=== PATIENT | female | born 1985 | race Caucasian/White ===

== ENCOUNTER 2024-05-28 20:30 | Emergency (ER) | payer BC ==
[~2024-05-28] VITALS: Ht 170.2 cm; Wt 63.0 kg
[2024-05-28] MEDS ORDERED: CLINDAMYCIN300 M1 PO (20:55)
[2024-05-28] MEDS ORDERED: CLINDAMYCIN HCL 150 MG CAP PO ONE (20:55)
[2024-05-28 21:30] VITALS: BP 141/62
== END 2024-05-28 21:40 | disposition home or self-care (01) | DRG 159 ==
LOC: ED 20:30
DX: K02.9 Dental caries, unspecified (principal); K04.7 Periapical abscess without sinus; F41.9 Anxiety disorder, unspecified; F32.A Depression, unspecified; Z88.0 Allergy status to penicillin